=== PATIENT | male | born 1985 | race Caucasian/White ===

== ENCOUNTER 2017-05-28 09:52 | Emergency (ER) | payer BC ==
[~2017-05-28] VITALS: Ht 172.7 cm; Wt 86.2 kg
[2017-05-28 10:00] VITALS: BP_SYST 160
[2017-05-28 10:18] LABS: BASOPHILS % (AUTO) 0.6 % (0.0-2.0); EOSINOPHILS # (AUTO) 0.1 K/uL (0.0-0.4); EOSINOPHILS % (AUTO) 1.3 % (0.0-4.0); HEMATOCRIT 45.6 % (36-54); HEMOGLOBIN 15.2 g/dL (14.0-18.0); LYMPHOCYTES # (AUTO) 1.5 K/uL (1.0-5.5); LYMPHOCYTES % (AUTO) 23.4 % (20.5-51.5); MEAN CORPUSCULAR HEMOGLOBIN 29 pg (27-31); MEAN CORPUSCULAR HGB CONC 33 % (32-36); MEAN CORPUSCULAR VOLUME 86 fL (79.0-98.0); MONOCYTES # (AUTO) 0.5 K/uL (0.0-1.0); MONOCYTES % (AUTO) 7.5 % (1.7-9.3); NEUTROPHILS # (AUTO) 4.3 K/uL (1.8-7.7); NEUTROPHILS % (AUTO) 67.2 % (40.0-70.0); PLATELET COUNT (AUTO) 268 K/uL (130-430); RED BLOOD CELL COUNT(AUTO) 5.28 MIL/uL (4.2-6.2); RED CELL DISTRIBUTION WIDTH 11.8 % (9.0-15.0); WHITE BLOOD COUNT (AUTO) 6.4 K/uL (4.8-10.8)
[2017-05-28 10:20] LABS: BILIRUBIN,URINE NEGATIVE (NEGATIVE); BLOOD, URINE 3+ (NEGATIVE); CLARITY/URINE HAZY (CLEAR); COLOR,URINE RED (YELLOW); GLUCOSE,URINE TRACE (NEGATIVE); KETONES,URINE 1+ (NEGATIVE); LEUKOCYTE ESTERASE ,URINE 2+ (NEGATIVE); NITRITE, URINE POSITIVE (NEGATIVE); PH,URINE 7.5 (5.0-8.0); PROTEIN URINE 3+ (NEGATIVE)
[2017-05-28 10:37] LABS: CALCIUM 9.3 mg/dL (8.4-11.0); CREATININE 0.98 mg/dL (0.55-1.30); POTASSIUM 4.9 mmol/L (3.5-5.1)
[2017-05-28 10:41] LABS: BACTERIA,URINE MANY /HPF (None Seen); RBC,URINE >100 /HPF (0-3)
[2017-05-28 10:42] LABS: MUCUS,URINE 2+ /LPF (None Seen)
[2017-05-28 11:28] VITALS: BP_SYST 148
== END 2017-05-28 11:28 | disposition home or self-care (01) ==
LOC: SED 09:52
DX: N39.0 Urinary tract infection, site not specified (principal)
CPT/HCPCS: 36415; 80048; 81000-TC; 85025; 87086; 99285

== ENCOUNTER 2017-05-29 09:12 | Emergency (ER) | payer BC ==
[~2017-05-29] VITALS: Ht 172.7 cm; Wt 86.2 kg
[2017-05-29 09:17] VITALS: BP_SYST 150
[2017-05-29 12:16] VITALS: BP_SYST 148
== END 2017-05-29 10:56 | disposition home or self-care (01) ==
LOC: SED 09:12
DX: N39.0 Urinary tract infection, site not specified (principal)
CPT/HCPCS: 99283

== ENCOUNTER 2018-06-05 08:14 | Emergency (ER) | payer BC ==
[~2018-06-05] VITALS: Ht 172.7 cm; Wt 97.5 kg
[2018-06-05 08:14] VITALS: BP_SYST 142
--- NOTE | 2018-06-05 08:14 | NUR ---
BROUGHT BACK TO BED #4 AND TRIAGED. REPORT GIVEN TO DEEPIKA
--- NOTE | 2018-06-05 08:37 | NUR ---
PT AAOX4, ABLE TO VERBALIZE NEEDS. PT STATES HE HAS HAD A "STOMACH BUG" SINCE LAST WEEK. PT STATES HE HAS MISSED WORK SINCE SUNDAY D/T N/V/D BUT HE NOW FEELS BETTER AND WANTS A DOCTOR'S NOTE FOR MISSING WORK. PT DENIES PAIN, N/V/D AT THIS TIME.
--- NOTE | 2018-06-05 08:48 | NUR ---
ER at bedside examining patient.
--- NOTE | 2018-06-05 09:25 | NUR ---
Patient given written and verbal discharge instructions and verbalizes understanding. ER MD discussed with patient the results and treatment provided. Patient in stable condition. ID arm band removed. NO Rx given. Patient educated on pain management and to follow up with PMD. Pain Scale 0/10. Opportunity for questions provided and answered. Medication side effect fact sheet provided.
[2018-06-05 09:26] VITALS: BP_SYST 142
== END 2018-06-05 09:25 | disposition home or self-care (01) ==
LOC: SED 08:14
DX: K52.9 Noninfective gastroenteritis and colitis, unspecified (principal)
CPT/HCPCS: 99281

== ENCOUNTER 2018-10-09 08:23 | Emergency (ER) | payer BC ==
[~2018-10-09] VITALS: Ht 172.7 cm; Wt 103.4 kg
[2018-10-09 08:33] VITALS: BP_SYST 153
[2018-10-09 09:30] VITALS: BP_SYST 141
== END 2018-10-09 09:30 | disposition home or self-care (01) ==
LOC: SED 08:23
DX: S93.401A Sprain of unspecified ligament of right ankle, initial encounter (principal); R03.0 Elevated blood-pressure reading, without diagnosis of hypertension; X58.XXXA Exposure to other specified factors, initial encounter; Y93.66 Activity, soccer; Y92.89 Other specified places as the place of occurrence of the external cause; Y99.8 Other external cause status
CPT/HCPCS: 99281